=== PATIENT | male | born 1930 | race Caucasian/White ===

== ENCOUNTER 2018-09-17 08:40 | Inpatient (IN) ==
[2018-09-17 09:41] LABS: Basophils % 0.4 % (0.0-0.8); Eosinophils # 0.1 10*3/uL (0.0-0.87); Eosinophils % 1.7 % (0.00-10.9); Hematocrit 33.2 VOL% (42.0-52.0); Hemoglobin 10.6 GM/DL (14.0-18.0); Immature Granulocytes % 0.4 %; Immature Granulocytes Absolute 0.03 #; Lymphocytes # 0.2 10*3/uL (1.4-4.0); Lymphocytes % 1.9 % (21.2-54.2); Mean Corpuscular HGB Conc 31.9 GM/DL (32-36); Mean Corpuscular Hemoglobin 30 PG (27-34); Mean Corpuscular Volume 93.5 FL (87-102); Monocytes # 0.3 10*3/uL (0.11-0.8); Monocytes % 3.5 % (1.7-12.7); Neutrophils # 7.1 10*3/uL (1.4-7.4); Neutrophils % 92.1 % (38.7-73.9); Platelet Count 158 T/CUMM (130-400); Red Blood Count 3.55 MC/CUMM (3.8-5.5); Red Cell Distribution Width 15.2 % (9.3-17.3); White Blood Count 7.8 T/CUMM (4-12)
[2018-09-17 10:01] LABS: Apearance,Urine CLEAR (Clear); Band Neutrophils 11 % (0-10); Bilirubin,Urine Negative (Negative); Blood, Urine Small mg/dL (Negative); Glucose,Urine (UA) 50 mg/dL (Negative); Hypochromasia 1+; Ketones,Urine 5 mg/dL (Negative); Lymphocytes 1 % (20-55); Microcytosis Slight; Nitrite,Urine Negative (Negative); Protein,Urine >=500 MG/DL; RBC,Urine 10 /HPF (0-4); Segmented Neutrophils 85 % (50-85); Total Cells Counted 100; Urine Color Yellow (Yellow); Urine Specific Gravity 1.016 (1.001-1.035); Urine Urobilinogen < 2.0 EU/DL (0.2-1.0); WBC,Urine <1 /HPF (0-6)
[2018-09-17 10:02] LABS: Ovalocytes Slight; Platelet Estimate Adequate
[2018-09-17 10:15] LABS: Alanine Aminotransferase < 6 U/L (16-61); Albumin 3.1 G/DL (3.4-5.0); Alkaline Phosphatase 142 U/L (45-117); Aspartate Amino Transferase 16 U/L (0-37); Blood Urea Nitrogen 29 MG/DL (7-18); Calcium 8.4 MG/DL (8.5-10.1); Glucose 247 MG/DL (74-106); Osmolality,Calculated 288.7 MOS/KG (273-304); Potassium 4.2 MMOL/L (3.5-5.1); Sodium 138 MMOL/L (136-145); Total Protein 7.4 G/DL (6.4-8.3)
[2018-09-17 10:50] LABS: Sedimentation Rate-Westergren 110 MM/HR (0-20)
[2018-09-17] MEDS ORDERED: PIPERACILLIN/TAZOBACTAM 3,375 MG in SODIUM CHLORIDE 0.9% 100 ML IV STA (15:24)
[2018-09-17] MEDS ORDERED: PROMETHAZINE 25 MG/1 ML VIAL IM PRN (15:31)
[2018-09-17] MEDS ORDERED: ONDANSETRON 4 MG/2 ML VIAL IV PRN (15:31)
[2018-09-17] MEDS ORDERED: ACETAMINOPHEN 325 MG TABLET PO PRN (15:31)
[2018-09-17] MEDS ORDERED: DEXTROSE 50% 25 GM/50 ML VIAL IV PRN (15:34)
[2018-09-17] MEDS ORDERED: GLUCAGON 1 MG VIAL IM PRN ×2 (15:34→15:35)
[2018-09-17] MEDS ORDERED: MAGNESIUM HYDROXIDE SUSP 30 ML UDCUP PO PRN (15:35)
[2018-09-17] MEDS ORDERED: ALUMINUM/MAGNES/SIMETH MAX STR 30 ML UDCUP PO PRN (15:35)
[2018-09-17] MEDS ORDERED: ZALEPLON 5 MG CAPSULE PO PRN (15:35)
[2018-09-17] MEDS ORDERED: ENOXAPARIN 40 MG/0.4 ML SYRINGE SUBCUT SCH (16:00)
[2018-09-17] MEDS: SODIUM CHLORIDE 0.9% 1,000 ML IV SCH (17:41)
[2018-09-17] MEDS: CARBIDOPA/LEVODOPA 25-100 MG TABLET PO SCH ×2 (17:45→23:01)
[2018-09-17] MEDS: INSULIN LISPRO 100 UNIT/ML SUBCUT SCH ×2 (17:49→22:59)
[2018-09-17] MEDS ORDERED: DIVALPROEX 250 MG TABLET PO SCH (21:00)
[2018-09-17] MEDS ORDERED: glipiZIDE 5 MG TABLET PO SCH (21:00)
[2018-09-17] MEDS: PROPRANOLOL 20 MG TABLET PO SCH (23:00)
[2018-09-17] MEDS: GEMFIBROZIL 600 MG TABLET PO SCH (23:01)
[2018-09-17] MEDS: MEMANTINE 10 MG TABLET PO SCH (23:01)
[2018-09-17] MEDS: ZINC OXIDE PASTE 113 GM TUBE TOP SCH (23:02)
[2018-09-17] MEDS: PIPERACILLIN/TAZOBACTAM 3,375 MG in SODIUM CHLORIDE 0.9% 100 ML IV SCH (23:05)
[2018-09-18] MEDS: PIPERACILLIN/TAZOBACTAM 3,375 MG in SODIUM CHLORIDE 0.9% 100 ML IV SCH ×3 (06:19→23:49)
[2018-09-18 06:46] LABS: Basophils % 0.7 % (0.0-0.8); Eosinophils # 0.1 10*3/uL (0.0-0.87); Eosinophils % 1.7 % (0.00-10.9); Hematocrit 28.1 VOL% (42.0-52.0); Immature Granulocytes % 0.3 %; Immature Granulocytes Absolute 0.01 #; Lymphocytes # 0.5 10*3/uL (1.4-4.0); Lymphocytes % 15.5 % (21.2-54.2); Mean Corpuscular Hemoglobin 30 PG (27-34); Mean Corpuscular Volume 94.3 FL (87-102); Mean Platelet Volume 10.4 FL (9.6-12.0); Monocytes # 0.3 10*3/uL (0.11-0.8); Monocytes % 10.6 % (1.7-12.7); Neutrophils # 2.2 10*3/uL (1.4-7.4); Neutrophils % 71.2 % (38.7-73.9); Platelet Count 141 T/CUMM (130-400); Red Blood Count 2.98 MC/CUMM (3.8-5.5); Red Cell Distribution Width 15.4 % (9.3-17.3)
[2018-09-18 07:03] LABS: Alanine Aminotransferase < 9 U/L (16-61); Albumin 2.4 G/DL (3.4-5.0); Alkaline Phosphatase 91 U/L (45-117); Aspartate Amino Transferase 13 U/L (0-37); Blood Urea Nitrogen 40 MG/DL (7-18); Cholesterol 113 MG/DL (50-200); Glucose 171 MG/DL (74-106); HDL Cholesterol 29 MG/DL (40-60); Osmolality,Calculated 296.1 MOS/KG (273-304); Potassium 3.5 MMOL/L (3.5-5.1); Sodium 142 MMOL/L (136-145); Thyroid Stimulating Hormone 0.572 uIU/ml (0.358-3.74); Total Protein 6.4 G/DL (6.4-8.3); Triglycerides 177 MG/DL (2-150); VLDL CHOLESTEROL 35.4 MG/DL
[2018-09-18 07:20] LABS: Band Neutrophils 10 % (0-10); Eosinophils 2 % (0-10); Hypochromasia 1+; Lymphocytes 16 % (20-55); Microcytosis Slight; Ovalocytes Slight; Platelet Estimate Adequate; Segmented Neutrophils 61 % (50-85); Total Cells Counted 100
[2018-09-18] MEDS: GEMFIBROZIL 600 MG TABLET PO SCH ×2 (08:40→23:43)
[2018-09-18] MEDS: FINASTERIDE 5 MG TABLET PO SCH (08:40)
[2018-09-18] MEDS: PANTOPRAZOLE 40 MG TABLET PO SCH (08:40)
[2018-09-18] MEDS: SODIUM CHLORIDE 0.9% 1,000 ML IV SCH (08:40)
[2018-09-18] MEDS: MEMANTINE 10 MG TABLET PO SCH ×2 (08:40→23:42)
[2018-09-18] MEDS: FOLIC ACID 1 MG TABLET PO SCH (08:40)
[2018-09-18] MEDS: PROPRANOLOL 20 MG TABLET PO SCH ×2 (08:40→23:47)
[2018-09-18] MEDS: INSULIN LISPRO 100 UNIT/ML SUBCUT SCH ×4 (08:41→20:39)
[2018-09-18] MEDS: THIAMINE 100 MG TABLET PO SCH (08:41)
[2018-09-18] MEDS: amLODIPine 5 MG TABLET PO SCH (08:41)
[2018-09-18] MEDS: DONEPEZIL 10 MG TABLET PO SCH (08:41)
[2018-09-18] MEDS: CARBIDOPA/LEVODOPA 25-100 MG TABLET PO SCH ×4 (08:41→23:42)
[2018-09-18] MEDS: ZINC OXIDE PASTE 113 GM TUBE TOP SCH ×2 (08:42→23:48)
[2018-09-18] MEDS: ENOXAPARIN 30 MG/0.3 ML SYRINGE SUBCUT SCH (12:24)
[2018-09-18] MEDS: METOCLOPRAMIDE 10 MG/2 ML VIAL IV SCH ×3 (12:25→23:50)
[2018-09-18] MEDS: SODIUM CHLORIDE 0.45% 1,000 ML IV SCH (12:26)
[2018-09-19] MEDS: SODIUM CHLORIDE 0.45% 1,000 ML IV SCH ×2 (00:50→12:55)
[2018-09-19 05:18] LABS: Eosinophils # 0.3 10*3/uL (0.0-0.87); Eosinophils % 10.8 % (0.00-10.9); Hematocrit 27.6 VOL% (42.0-52.0); Hemoglobin 8.9 GM/DL (14.0-18.0); Immature Granulocytes % 0.3 %; Immature Granulocytes Absolute 0.01 #; Lymphocytes # 0.8 10*3/uL (1.4-4.0); Lymphocytes % 25.5 % (21.2-54.2); Mean Corpuscular HGB Conc 32.2 GM/DL (32-36); Mean Corpuscular Hemoglobin 30 PG (27-34); Mean Corpuscular Volume 93.2 FL (87-102); Mean Platelet Volume 9.9 FL (9.6-12.0); Monocytes # 0.3 10*3/uL (0.11-0.8); Monocytes % 10.8 % (1.7-12.7); Neutrophils # 1.6 10*3/uL (1.4-7.4); Neutrophils % 51.6 % (38.7-73.9); Platelet Count 153 T/CUMM (130-400); Red Blood Count 2.96 MC/CUMM (3.8-5.5); Red Cell Distribution Width 14.9 % (9.3-17.3); White Blood Count 3.1 T/CUMM (4-12)
[2018-09-19 05:21] LABS: Calcium 8.2 MG/DL (8.5-10.1); Osmolality,Calculated 289.3 MOS/KG (273-304); Potassium 3.5 MMOL/L (3.5-5.1)
[2018-09-19 05:47] LABS: Eosinophils 8 % (0-10); Hypochromasia 1+; Lymphocytes 30 % (20-55); Microcytosis Slight; Ovalocytes Slight; Platelet Estimate Adequate; Segmented Neutrophils 53 % (50-85); Total Cells Counted 100
[2018-09-19] MEDS: METOCLOPRAMIDE 10 MG/2 ML VIAL IV SCH ×3 (06:02→17:12)
[2018-09-19] MEDS: PIPERACILLIN/TAZOBACTAM 3,375 MG in SODIUM CHLORIDE 0.9% 100 ML IV SCH ×3 (06:12→22:57)
[2018-09-19] MEDS: ZINC OXIDE PASTE 113 GM TUBE TOP SCH ×2 (08:35→21:45)
[2018-09-19] MEDS: INSULIN LISPRO 100 UNIT/ML SUBCUT SCH ×4 (08:35→21:53)
[2018-09-19] MEDS ORDERED: hydrALAZINE 20 MG/1 ML VIAL IV PRN (09:19)
[2018-09-19] MEDS: DONEPEZIL 10 MG TABLET PO SCH (11:48)
[2018-09-19] MEDS: PROPRANOLOL 20 MG TABLET PO SCH ×2 (11:48→21:47)
[2018-09-19] MEDS: CARBIDOPA/LEVODOPA 25-100 MG TABLET PO SCH ×4 (11:48→21:48)
[2018-09-19] MEDS: FINASTERIDE 5 MG TABLET PO SCH (11:49)
[2018-09-19] MEDS: THIAMINE 100 MG TABLET PO SCH (11:49)
[2018-09-19] MEDS: FOLIC ACID 1 MG TABLET PO SCH (11:49)
[2018-09-19] MEDS: PANTOPRAZOLE 40 MG TABLET PO SCH (11:50)
[2018-09-19] MEDS: GEMFIBROZIL 600 MG TABLET PO SCH ×2 (11:50→21:48)
[2018-09-19] MEDS: MEMANTINE 10 MG TABLET PO SCH ×2 (11:50→21:48)
[2018-09-19] MEDS: ENOXAPARIN 30 MG/0.3 ML SYRINGE SUBCUT SCH (11:50)
[2018-09-19] MEDS: amLODIPine 5 MG TABLET PO SCH (11:51)
[2018-09-19] MEDS: URSODIOL 300 MG CAPSULE PO SCH (21:47)
[2018-09-20] MEDS: METOCLOPRAMIDE 10 MG/2 ML VIAL IV SCH ×3 (00:45→12:46)
[2018-09-20 04:54] LABS: Basophils % 0.3 % (0.0-0.8); Eosinophils # 0.2 10*3/uL (0.0-0.87); Eosinophils % 6.4 % (0.00-10.9); Hematocrit 25.4 VOL% (42.0-52.0); Hemoglobin 8.2 GM/DL (14.0-18.0); Immature Granulocytes % 0.3 %; Immature Granulocytes Absolute 0.01 #; Lymphocytes # 0.7 10*3/uL (1.4-4.0); Lymphocytes % 20.4 % (21.2-54.2); Mean Corpuscular HGB Conc 32.3 GM/DL (32-36); Mean Corpuscular Hemoglobin 29 PG (27-34); Mean Corpuscular Volume 90.4 FL (87-102); Mean Platelet Volume 9.9 FL (9.6-12.0); Monocytes # 0.4 10*3/uL (0.11-0.8); Monocytes % 9.7 % (1.7-12.7); Neutrophils # 2.3 10*3/uL (1.4-7.4); Neutrophils % 62.9 % (38.7-73.9); Platelet Count 143 T/CUMM (130-400); Red Blood Count 2.81 MC/CUMM (3.8-5.5); Red Cell Distribution Width 14.5 % (9.3-17.3); White Blood Count 3.6 T/CUMM (4-12)
[2018-09-20 05:11] LABS: Alanine Aminotransferase < 6 U/L (16-61); Albumin 2.5 G/DL (3.4-5.0); Alkaline Phosphatase 81 U/L (45-117); Aspartate Amino Transferase 16 U/L (0-37); Blood Urea Nitrogen 23 MG/DL (7-18); Calcium 8.1 MG/DL (8.5-10.1); Glucose 138 MG/DL (74-106); Osmolality,Calculated 286.3 MOS/KG (273-304); Sodium 141 MMOL/L (136-145); Total Protein 6.2 G/DL (6.4-8.3)
[2018-09-20] MEDS: PIPERACILLIN/TAZOBACTAM 3,375 MG in SODIUM CHLORIDE 0.9% 100 ML IV SCH (06:32)
[2018-09-20] MEDS ORDERED: ENOXAPARIN 40 MG/0.4 ML SYRINGE SUBCUT SCH (09:00)
[2018-09-20] MEDS: FINASTERIDE 5 MG TABLET PO SCH (09:31)
[2018-09-20] MEDS: CARBIDOPA/LEVODOPA 25-100 MG TABLET PO SCH ×2 (09:31→12:47)
[2018-09-20] MEDS: DONEPEZIL 10 MG TABLET PO SCH (09:31)
[2018-09-20] MEDS: FOLIC ACID 1 MG TABLET PO SCH (09:31)
[2018-09-20] MEDS: MEMANTINE 10 MG TABLET PO SCH (09:32)
[2018-09-20] MEDS: GEMFIBROZIL 600 MG TABLET PO SCH (09:32)
[2018-09-20] MEDS: INSULIN LISPRO 100 UNIT/ML SUBCUT SCH ×2 (09:32→12:46)
[2018-09-20] MEDS: amLODIPine 5 MG TABLET PO SCH (09:32)
[2018-09-20] MEDS: THIAMINE 100 MG TABLET PO SCH (09:32)
[2018-09-20] MEDS: URSODIOL 300 MG CAPSULE PO SCH (09:33)
[2018-09-20] MEDS: ZINC OXIDE PASTE 113 GM TUBE TOP SCH (09:33)
[2018-09-20] MEDS: PROPRANOLOL 20 MG TABLET PO SCH (09:47)
[2018-09-20] MEDS: PANTOPRAZOLE 40 MG TABLET PO SCH (09:47)
[2018-09-20] MEDS ORDERED: POTASSIUM CHLORIDE 20 MEQ TABLET PO ONE (14:30)
[2018-09-20 16:52] VITALS: BP 177/77
== END 2018-09-20 16:45 | DRG 177 ==
LOC: EDBD → EDUNIT# → N.ED 08:40 → SUATTDRO 15:29 → INTOOBSV 15:29 → N.EDINP 15:29 → N.2E 16:49
PROVIDERS: ADMIT Internal Medicine; ATTEND Family Medicine

== ENCOUNTER 2018-09-21 11:13 | Observation (INO) ==
[2018-09-21] MEDS ORDERED: SODIUM CHLORIDE 0.9% 1,000 ML IV STA ×2 (11:48→15:26)
[2018-09-21] MEDS ORDERED: ONDANSETRON 4 MG/2 ML VIAL IV PRN (12:40)
[2018-09-21] MEDS ORDERED: PROMETHAZINE 25 MG/1 ML VIAL IM PRN (12:40)
[2018-09-21] MEDS ORDERED: MAGNESIUM HYDROXIDE SUSP 30 ML UDCUP PO PRN (12:43)
[2018-09-21 12:49] LABS: Apearance,Urine CLEAR (Clear); Bacteria,Urine Occasional /HPF (Few); Bilirubin,Urine Negative (Negative); Blood, Urine Small mg/dL (Negative); Glucose,Urine (UA) 50 mg/dL (Negative); Ketones,Urine Negative (Negative); Mucus,Urine Occasional /LPF (Occasional); Nitrite,Urine Negative (Negative); Protein,Urine 100 MG/DL; RBC,Urine 3 /HPF (0-4); Urine Color Yellow (Yellow); Urine Specific Gravity 1.011 (1.001-1.035); Urine Urobilinogen < 2.0 EU/DL (0.2-1.0); WBC,Urine <1 /HPF (0-6)
[2018-09-21 12:53] LABS: Basophils % 0.6 % (0.0-0.8); Eosinophils # 0.2 10*3/uL (0.0-0.87); Eosinophils % 6.3 % (0.00-10.9); Hematocrit 31.4 VOL% (42.0-52.0); Hemoglobin 10.2 GM/DL (14.0-18.0); Immature Granulocytes % 0.6 %; Immature Granulocytes Absolute 0.02 #; Lymphocytes # 0.7 10*3/uL (1.4-4.0); Lymphocytes % 23.1 % (21.2-54.2); Mean Corpuscular HGB Conc 32.5 GM/DL (32-36); Mean Corpuscular Hemoglobin 30 PG (27-34); Mean Corpuscular Volume 92.9 FL (87-102); Mean Platelet Volume 10.1 FL (9.6-12.0); Monocytes # 0.3 10*3/uL (0.11-0.8); Monocytes % 8.9 % (1.7-12.7); Neutrophils # 1.9 10*3/uL (1.4-7.4); Neutrophils % 60.5 % (38.7-73.9); Platelet Count 168 T/CUMM (130-400); Red Blood Count 3.38 MC/CUMM (3.8-5.5); Red Cell Distribution Width 14.6 % (9.3-17.3); White Blood Count 3.2 T/CUMM (4-12)
[2018-09-21 13:00] LABS: Partial Thromboplastin Time 27.8 SECS (0-40)
[2018-09-21] MEDS ORDERED: DEXTROSE 5% NACL 0.45% 1,000 ML IV SCH (13:00)
[2018-09-21 13:30] LABS: Albumin 2.9 G/DL (3.4-5.0); Bilirubin,Total 0.4 MG/DL (0.2-1.0); Calcium 8.7 MG/DL (8.5-10.1); Osmolality,Calculated 294.7 MOS/KG (273-304); Total Protein 7.4 G/DL (6.4-8.3)
[2018-09-21] MEDS ORDERED: ENOXAPARIN 40 MG/0.4 ML SYRINGE ONE (13:58)
[2018-09-21] MEDS: ENOXAPARIN 40 MG/0.4 ML SYRINGE SUBCUT SCH (14:00)
[2018-09-21] MEDS ORDERED: ACETAMINOPHEN 500 MG TABLET PO ONE (15:25)
[2018-09-21] MEDS ORDERED: ACETAMINOPHEN 500 MG TABLET ONE (15:27)
[2018-09-21] MEDS: CARBIDOPA/LEVODOPA 25-100 MG TABLET PO SCH ×3 (15:36→20:29)
[2018-09-21] MEDS: DEXT 5% NACL 0.45% KCL 20 MEQ 20 MEQ/1,000 ML BAG IV SCH (17:10)
[2018-09-21] MEDS: PIPERACILLIN/TAZOBACTAM 3,375 MG in SODIUM CHLORIDE 0.9% 100 ML IV SCH (17:10)
[2018-09-21] MEDS: ALBUTEROL/IPRATROPIUM 3 ML NEB RESP TX SCH (19:30)
[2018-09-21] MEDS: ZINC OXIDE PASTE 113 GM TUBE TOP SCH (20:28)
[2018-09-21] MEDS: PROPRANOLOL 20 MG TABLET PO SCH (20:28)
[2018-09-21] MEDS: ACETAMINOPHEN 325 MG TABLET PO PRN (20:29)
[2018-09-21] MEDS: URSODIOL 300 MG CAPSULE PO SCH (20:29)
[2018-09-21] MEDS ORDERED: MEMANTINE 10 MG TABLET PO SCH (21:00)
[2018-09-21] MEDS: POTASSIUM CHLORIDE RIDER 10 MEQ in PREMIX 1 EACH IV PRN (23:46)
[2018-09-22] MEDS: ALBUTEROL/IPRATROPIUM 3 ML NEB RESP TX SCH ×4 (00:40→19:14)
[2018-09-22] MEDS: POTASSIUM CHLORIDE RIDER 10 MEQ in PREMIX 1 EACH IV PRN ×4 (00:49→04:39)
[2018-09-22] MEDS: PIPERACILLIN/TAZOBACTAM 3,375 MG in SODIUM CHLORIDE 0.9% 100 ML IV SCH ×3 (05:30→21:22)
[2018-09-22 08:26] LABS: Calcium 8.1 MG/DL (8.5-10.1); Osmolality,Calculated 281.5 MOS/KG (273-304); Potassium 3.2 MMOL/L (3.5-5.1)
[2018-09-22] MEDS ORDERED: DONEPEZIL 10 MG TABLET PO SCH (09:00)
[2018-09-22] MEDS: ENOXAPARIN 40 MG/0.4 ML SYRINGE SUBCUT SCH (09:13)
[2018-09-22] MEDS: ZINC OXIDE PASTE 113 GM TUBE TOP SCH ×2 (09:13→21:22)
[2018-09-22] MEDS: FOLIC ACID 1 MG TABLET PO SCH ×2 (10:01→10:13)
[2018-09-22] MEDS: URSODIOL 300 MG CAPSULE PO SCH ×3 (10:01→21:21)
[2018-09-22] MEDS: THIAMINE 100 MG TABLET PO SCH ×2 (10:02→10:13)
[2018-09-22] MEDS: amLODIPine 5 MG TABLET PO SCH ×2 (10:02→10:13)
[2018-09-22] MEDS: FINASTERIDE 5 MG TABLET PO SCH ×2 (10:02→10:13)
[2018-09-22] MEDS: PROPRANOLOL 20 MG TABLET PO SCH ×3 (10:02→21:22)
[2018-09-22] MEDS: PANTOPRAZOLE 40 MG TABLET PO SCH ×2 (10:02→10:13)
[2018-09-22] MEDS: ACETAMINOPHEN 325 MG TABLET PO PRN (10:14)
[2018-09-22] MEDS: DEXT 5% NACL 0.45% KCL 20 MEQ 20 MEQ/1,000 ML BAG IV SCH (12:33)
[2018-09-23] MEDS: ALBUTEROL/IPRATROPIUM 3 ML NEB RESP TX SCH ×3 (00:45→13:00)
[2018-09-23] MEDS: PIPERACILLIN/TAZOBACTAM 3,375 MG in SODIUM CHLORIDE 0.9% 100 ML IV SCH (05:06)
[2018-09-23 06:02] LABS: Calcium 8.1 MG/DL (8.5-10.1); Osmolality,Calculated 283.4 MOS/KG (273-304); Potassium 3.1 MMOL/L (3.5-5.1)
[2018-09-23] MEDS ORDERED: POTASSIUM CHLORIDE 20 MEQ TABLET PO ONE ×2 (08:00→12:00)
[2018-09-23] MEDS: THIAMINE 100 MG TABLET PO SCH (09:02)
[2018-09-23] MEDS: URSODIOL 300 MG CAPSULE PO SCH (09:02)
[2018-09-23] MEDS: FOLIC ACID 1 MG TABLET PO SCH (09:03)
[2018-09-23] MEDS: FINASTERIDE 5 MG TABLET PO SCH (09:03)
[2018-09-23] MEDS: PROPRANOLOL 20 MG TABLET PO SCH (09:04)
[2018-09-23] MEDS: PANTOPRAZOLE 40 MG TABLET PO SCH (09:04)
[2018-09-23] MEDS: amLODIPine 5 MG TABLET PO SCH (09:04)
[2018-09-23] MEDS: ENOXAPARIN 40 MG/0.4 ML SYRINGE SUBCUT SCH (09:04)
[2018-09-23] MEDS: ZINC OXIDE PASTE 113 GM TUBE TOP SCH (09:05)
[2018-09-23] MEDS: ACETAMINOPHEN 325 MG TABLET PO PRN (09:09)
[2018-09-23 12:10] VITALS: BP 124/61
[2018-09-23] MEDS ORDERED: AMOXICILLIN/CLAV 875 MG TABLET PO SCH (13:00)
== END 2018-09-23 13:41 ==
LOC: EDBD → EDUNIT# → N.EDINP 11:13 → N.ED 11:13 → N.2E 15:19
PROVIDERS: ADMIT Family Medicine; ATTEND Family Medicine